=== PATIENT | female | born 1945 | race Caucasian/White ===

== ENCOUNTER → 2018-04-27 | Outpatient (CLI) | payer MEDICARE ==
[2018-04-27 16:11] LABS: BASOPHILS ABSOLUTE AUTO 0.04 K/mm3 (0.00-0.23); BASOPHILS PERCENT AUTO 1 % (0-2); EOSINOPHILS ABSOLUTE AUTO 0.13 K/mm3 (0.00-0.68); EOSINOPHILS PERCENT AUTO 2 % (0-6); Hematocrit 44.2 % (33.0-51.0); Hemoglobin 14.7 g/dL (11.5-16.0); IMMATURE GRAN ABSOLUTE AUTO 0.03 K/mm3 (0.00-0.10); IMMATURE GRAN PERCENT AUTO 1 % (0-1); LYMPHOCYTES ABSOLUTE AUTO 2.05 K/mm3 (0.84-5.20); LYMPHOCYTES PERCENT AUTO 35 % (21-46); MONOCYTES ABSOLUTE AUTO 0.39 K/mm3 (0.16-1.47); MONOCYTES PERCENT AUTO 7 % (4-13); Mean Corpuscular HGB 29.1 pg (26.0-34.0); Mean Corpuscular HGB Conc 33.3 g/dL (31.5-36.5); Mean Corpuscular Volume 87 fL (80-100); Mean Platelet Volume 10.7 fL (9.1-12.4); NEUTROPHILS ABSOLUTE AUTO 3.26 K/mm3 (1.96-9.15); NEUTROPHILS PERCENT AUTO 55 % (41-73); Platelet Count 244 K/mm3 (150-400); RDW Coefficient Variation 13.2 % (11.7-14.2); RDW Standard Deviation 41.7 fL (35.1-46.3); Red Blood Cell Count 5.06 M/mm3 (3.80-5.20)
[2018-04-27 21:17] LABS: Alanine Aminotransfer (ALT/SGP 20 U/L (12-78); Albumin/Globulin Ratio 1.2 (0.8-1.8); Alk Phos 122 U/L (50-136); Anion Gap 8 mmol/L (6-16); Aspartate Aminotrans (AST/SGOT 12 U/L (12-37); Bilirubin, Total 0.6 mg/dL (0.1-1.0); Blood Urea Nitrogen 11 mg/dL (8-24); Bun/Creatinine Ratio 21.6 (12.0-20.0); CO2, Blood 26 mmol/L (21-32); Calcium, Blood 9.1 mg/dL (8.5-10.1); Chloride, Blood 105 mmol/L (98-108); Creatinine, Blood 0.51 mg/dL (0.40-1.00); Globulin, Blood 3.4 g/dL (2.2-4.0); Glomerular Filtration Rate >60 (60-); Glucose, Blood 321 mg/dL (70-99); Potassium, Blood 3.7 mmol/L (3.5-5.5); Sodium, Blood 139 mmol/L (136-145); Total Protein, Blood 7.4 g/dL (6.4-8.2)
== END | disposition home or self-care (01) ==
LOC: LAB SHORT 16:04 → LAB EV 16:04
PROVIDERS: Family Medicine
DX: E11.65 Type 2 diabetes mellitus with hyperglycemia (principal); N39.0 Urinary tract infection, site not specified; R10.9 Unspecified abdominal pain
CPT/HCPCS: 80053; 83036; 85025; 87077; 87086; 87186

== ENCOUNTER 2020-03-24 14:35 | Inpatient (IN) | payer MEDICARE ==
[~2020-03-24] VITALS: Ht 165.1 cm; Wt 54.6 kg
[~2020-03-24 14:35] MED LIST: ACET325 PO; BASAGLAR K100 UNIT/1 SC; HUMALOG KW100 UNIT/1 SC; LEVFLO500 PO; METR500 PO; MIRALAX17 GM PO; ROXICODONE5 MG PO; [UNRECOGNIZED DRUG - OTHER] PO
[2020-03-24 20:41] LABS: BASOPHILS ABSOLUTE AUTO 0.04 K/mm3 (0.00-0.23); BASOPHILS PERCENT AUTO 0 % (0-2); EOSINOPHILS PERCENT AUTO 0 % (0-6); Hematocrit 38.2 % (33.0-51.0); Hemoglobin 12.5 g/dL (11.5-16.0); IMMATURE GRAN ABSOLUTE AUTO 0.21 K/mm3 (0.00-0.10); IMMATURE GRAN PERCENT AUTO 1 % (0-1); LYMPHOCYTES ABSOLUTE AUTO 0.72 K/mm3 (0.84-5.20); LYMPHOCYTES PERCENT AUTO 5 % (21-46); MONOCYTES ABSOLUTE AUTO 0.75 K/mm3 (0.16-1.47); MONOCYTES PERCENT AUTO 5 % (4-13); Mean Corpuscular HGB 28.3 pg (26.0-34.0); Mean Corpuscular HGB Conc 32.7 g/dL (31.5-36.5); Mean Corpuscular Volume 87 fL (80-100); Mean Platelet Volume 10.3 fL (9.1-12.4); NEUTROPHILS ABSOLUTE AUTO 13.46 K/mm3 (1.96-9.15); NEUTROPHILS PERCENT AUTO 89 % (41-73); Platelet Count 254 K/mm3 (150-400); RDW Coefficient Variation 13.1 % (11.7-14.2); RDW Standard Deviation 41.3 fL (35.1-46.3); Red Blood Cell Count 4.41 M/mm3 (3.80-5.20); White Blood Cell Count 15.18 K/mm3 (4.00-11.30)
[2020-03-24 21:14] LABS: Albumin, Blood 1.9 g/dL (3.4-5.0); Albumin/Globulin Ratio 0.4 (0.8-1.8); Bilirubin, Total 0.6 mg/dL (0.1-1.0); Bun/Creatinine Ratio 19.3 (12.0-20.0); Calcium, Blood 8.7 mg/dL (8.5-10.1); Creatinine, Blood 1.14 mg/dL (0.40-1.00); Globulin, Blood 4.9 g/dL (2.2-4.0); Potassium, Blood 3.5 mmol/L (3.5-5.5); Total Protein, Blood 6.8 g/dL (6.4-8.2)
[2020-03-24 21:23] LABS: Source, Urine Clean Catch
[2020-03-24 21:25] LABS: Appearance, Urine Cloudy (Clear); Bilirubin, Urine Neg (Neg); Blood, Urine 5+ (Neg); Color, Urine Brown (P-Yellow); Glucose Qualitative, Urine 4+ (Neg); Ketones, Urine 2+ (Neg); Leukocyte Esterase, Urine 2+ (Neg); Nitrite, Urine Pos (Neg); Protein, Urine 4+ (Neg); Urobilinogen, Urine NORM (Normal)
[2020-03-24 21:32] LABS: Bacteria Many /hpf; Red Blood Cells, Urine TNTC /hpf (0-2); Squamous Epithelial Cells Few /hpf (Few); White Blood Cells, Urine TNTC /hpf (0-5)
[2020-03-24] MEDS ORDERED: HUMALOG100 UNIT/1 SC (21:47)
--- NOTE | 2020-03-25 04:18 | NUR ---
ADMISSION NOTE RECEIVED HAND OFF FROM Dalia SELF RN USING SBAR. TRANSPORTED TO ROOM 227 VIA STRETCHER. TRANSFERED SELF TO BED WITH MINIMAL ASSISTANCE, TOLERATED WELL. LYING IN HIGH FOWLERS WITH EYES OPEN. AAO X3 (SELF, PLACE, SITUATION). ORIENTED TO ROOM, CALL SYSTEM, AND POC, VOICES UNDERSTANDING. LEFT ARM WITH EDEMA, REDNESS, AND PAIN NOTED. EDGES MARKED IN ER. RESPIRATIONS EVEN AND UNLABORED ON ROOM AIR. LUNG SOUNDS COARSE BILATERALLY. ABDOMEN ROUND AND DISTENDED WITH DISTANT BOWEL TONES NOTED. STATED THAT SHE WAS HUNGRY, GIVEN HALF OF A ROAST BEEF SANDWICH AND WATER. INCONTINENT OF BLADDER, WEARS DEPENDS. REPORTED DARK BROWN CLOUDY URINE PER ER. HAS NOT URINATED AT THIS TIME. RIGHT HAND 22G PIV IS PATENT, FLUSHING WITH EASE WHILE INFUSING NS WITH 20MEQ KCL AT 100ML/HR. DENIES PAIN, DISCOMFORT, OR FURTHER NEEDS AT THIS TIME. ADMISSION ASSESSMENT IN PROGRESS. SAFETY MEASURES IN PLACE. WILL CONTINUE TO MONITOR.
[2020-03-25 05:40] LABS: BASOPHILS ABSOLUTE AUTO 0.04 K/mm3 (0.00-0.23); BASOPHILS PERCENT AUTO 0 % (0-2); EOSINOPHILS ABSOLUTE AUTO 0.01 K/mm3 (0.00-0.68); EOSINOPHILS PERCENT AUTO 0 % (0-6); Hematocrit 39.6 % (33.0-51.0); Hemoglobin 12.5 g/dL (11.5-16.0); IMMATURE GRAN ABSOLUTE AUTO 0.11 K/mm3 (0.00-0.10); IMMATURE GRAN PERCENT AUTO 1 % (0-1); LYMPHOCYTES ABSOLUTE AUTO 0.75 K/mm3 (0.84-5.20); LYMPHOCYTES PERCENT AUTO 6 % (21-46); MONOCYTES ABSOLUTE AUTO 0.55 K/mm3 (0.16-1.47); MONOCYTES PERCENT AUTO 5 % (4-13); Mean Corpuscular HGB Conc 31.6 g/dL (31.5-36.5); Mean Corpuscular Volume 89 fL (80-100); Mean Platelet Volume 10.6 fL (9.1-12.4); NEUTROPHILS ABSOLUTE AUTO 10.31 K/mm3 (1.96-9.15); NEUTROPHILS PERCENT AUTO 88 % (41-73); Platelet Count 297 K/mm3 (150-400); RDW Coefficient Variation 13.1 % (11.7-14.2); RDW Standard Deviation 42.8 fL (35.1-46.3); Red Blood Cell Count 4.47 M/mm3 (3.80-5.20); White Blood Cell Count 11.77 K/mm3 (4.00-11.30)
[2020-03-25 05:52] LABS: Anion Gap 10 mmol/L (6-16); Blood Urea Nitrogen 23 mg/dL (8-24); Bun/Creatinine Ratio 21.1 (12.0-20.0); CO2, Blood 24 mmol/L (21-32); Chloride, Blood 101 mmol/L (98-108); Creatinine, Blood 1.09 mg/dL (0.40-1.00); Glomerular Filtration Rate 52 (60-); Glucose, Blood 382 mg/dL (70-99); Potassium, Blood 3.4 mmol/L (3.5-5.5); Sodium, Blood 135 mmol/L (136-145); Troponin I <0.015 ng/mL (0.000-0.040)
--- NOTE | 2020-03-25 06:31 | NUR ---
SHIFT SUMMARY LYING IN SEMI FOWLERS WITH EYES OPEN. HAS RESTED OFF AND ON SINCE ADMISSION. ONLY ATE A FEW BITES OF THE SANDWICH PROVIDED, STATED THAT IT DIDN'T TASTE RIGHT. INFORMED THAT BREAKFAST WOULD BE SERVED IN A COUPLE OF HOURS, VOICES UNDERSTANDING. PIV IS PATENT, FLUSHING WITH EASE WHILE INFUSING NS WITH 20MEQ KCL AT 100ML/HR. LEFT ARM EDEMA AND WARMTH ARE UNCHANGED. NO SIGNIFICANT CHANGES THIS SHIFT. DENIES PAIN, DISCOMFORT, OR FURTHER NEEDS AT THIS TIME. SAFETY MEASURES IN PLACE. WILL CONTINUE TO MONITOR UNTIL GIVING HAND OFF TO ONCOMING SHIFT USING SBAR.
--- NOTE | 2020-03-25 12:30 | NUR ---
IMAGING STUDIES BEING PERFORMED BEDSIDE
--- NOTE | 2020-03-25 18:44 | NUR ---
SHIFT SUMMARY ASSUMED CARE AT APPROX 1300, PT HAS BEEN PLEASANTLY CONFUSED AT TIMES BUT ANSWERS ALL ?'S APPROP AT OTHER TIMES. NEG FOR DVT IN L ARM TODAY. + BLOOD CULTURES x 2. URINE CONTINUES TO BE DARK ALMOST BROWN IN COLOR. IVF INFUSED T/O SHIFT.
--- NOTE | 2020-03-25 21:46 | NUR ---
SURGICAL NURSE CHECKED PATIENT'S BLOOD SUGAR AND IT WAS 406. I CALLED FULL STACK ENGINEER HERVE TO UPDATE HER ABOUT THE SITUATION. SHE INCREASED HER INSULIN SCALE TO MEDIUM. I WILL BE GIVING HER INSULIN AND MONITORING HER BLOOD GLUCOSE DURING THE NIGHT. WILL CALL THE HOSPITALIST IF BLOOD GLUCOSE IS > OR EQUAL TO 400 AGAIN. PATIENT HAS CALL LIGHT WITHIN REACH.
--- NOTE | 2020-03-26 03:17 | NUR ---
SHIFT SUMMARY: SEPSIS WITH UTI WELL LEFT ARM CELLULITIS PATIENT IS PLEASANTLY CONFUSED AT TIMES BUT IS EASILY RE-ORIENTATED. SHE ALSO FOLLOWS DIRECTIONS WELL. VS ARE WNL AND IS ON RA. PAIN IS CONTROLLED WITH TYLENOL. EARLY IN THE SHIFT SHE HAD A CT DONE ON HER CHEST WHICH RESULTS ARE IN FRONT OF HER CHART. PATIENT IS A SBA WITH GAIT BELT AND WALKER WHEN GETTING UP TO USE THE BATHROOM. HER LEFT ARM IS ELEVATED BY A PILLOW. SHE HAS IV FLUIDS RUNNING IN HER 20G IV ON HER RIGHT HAND. URINE IS STILL A DARK ALMOST BROWN COLOR. CALL LIGHT WITHIN REACH. PATIENT IS CURRENTLY LAYING IN BED WITH HER EYES CLOSED AND LIGHTS OFF. THE PLAN IS TO CONTINUE PHYSICAL THERAPY WELL IV FLUIDS/ABX.
[2020-03-26 09:05] LABS: BASOPHILS ABSOLUTE AUTO 0.06 K/mm3 (0.00-0.23); BASOPHILS PERCENT AUTO 0 % (0-2); EOSINOPHILS PERCENT AUTO 1 % (0-6); Hematocrit 38.7 % (33.0-51.0); Hemoglobin 12.3 g/dL (11.5-16.0); IMMATURE GRAN ABSOLUTE AUTO 0.16 K/mm3 (0.00-0.10); IMMATURE GRAN PERCENT AUTO 1 % (0-1); LYMPHOCYTES ABSOLUTE AUTO 0.99 K/mm3 (0.84-5.20); LYMPHOCYTES PERCENT AUTO 7 % (21-46); MONOCYTES ABSOLUTE AUTO 0.82 K/mm3 (0.16-1.47); MONOCYTES PERCENT AUTO 6 % (4-13); Mean Corpuscular HGB 27.5 pg (26.0-34.0); Mean Corpuscular HGB Conc 31.8 g/dL (31.5-36.5); Mean Corpuscular Volume 87 fL (80-100); NEUTROPHILS ABSOLUTE AUTO 12.38 K/mm3 (1.96-9.15); NEUTROPHILS PERCENT AUTO 85 % (41-73); RDW Coefficient Variation 13.2 % (11.7-14.2); RDW Standard Deviation 42.3 fL (35.1-46.3); Red Blood Cell Count 4.47 M/mm3 (3.80-5.20); White Blood Cell Count 14.51 K/mm3 (4.00-11.30)
[2020-03-26 09:08] LABS: Mean Platelet Volume 10.1 fL (9.1-12.4); Platelet Count 262 K/mm3 (150-400)
[2020-03-26 09:22] LABS: Bun/Creatinine Ratio 26.9 (12.0-20.0); Calcium, Blood 7.5 mg/dL (8.5-10.1); Creatinine, Blood 1.19 mg/dL (0.40-1.00)
[2020-03-26 11:48] LABS: Influenza A, PCR Negative (NEGATIVE); Influenza B, PCR Negative (NEGATIVE); Resp Syncytial Virus, PCR Negative (NEGATIVE); SARS-Cov-2 (COVID-19) PCR, MMC Negative (NEGATIVE)
[2020-03-26 15:26] LABS: U Opiates Screen DETECTED
[2020-03-26 15:27] LABS: U Amphetamine Screen Not Detected; U Barbituate Screen Not Detected; U Benzodiazapine Screen Not Detected; U Buprenorphine Screen Not Detected; U Cannabinoids Screen Not Detected; U Cocaine Screen Not Detected; U Methadone Screen Not Detected; U Methamphetamine Screen Not Detected; U Oxycodone Screen Not Detected; U Phencyclidine Screen Not Detected; U Propoxyphene Screen Not Detected
--- NOTE | 2020-03-26 16:27 | NUR ---
Patient returned to room 227 from MRI. RN noted what appears to be petechia on BLE and RUE. Pulses palpable. Hospitalist notified. No further orders at this time.
--- NOTE | 2020-03-26 18:28 | NUR ---
SHIFT SUMMARY PETECHIA NOTED TO EVELIO AND ENRIQUE. HOSPITALIST AWARE. LEFT ARM ELEVATED IN BED. PATIENT HAD US AND MRI OF L ARM TODAY. DR. FUNG CONSULTED. AWAITING FURTHER ORDERS AND PLAN. PLAN HAS BEEN CONFUSED AT TIMES BUT PLEASANT AND COOPERATIVE WITH ALL CARE. CALL LIGHT WITHIN PATIENT REACH.
--- NOTE | 2020-03-27 04:06 | NUR ---
FINANCIAL SOLUTIONS ADVISOR SUMMARY A/OX2, PT HAVING INTERMITTENT VISUAL HALLUCINATIONS. L. ARM ELEVATED WITH PILLOWS. POWERGLIDE PLACED THIS SHIFT, NS/KCL 20 RUNNING AT 100 MLS/HR. UP TO BSC WITH [address] RUNNING SR IN THE 90S. VSS, NO ACUTE CHANGES AT THIS TIME. BED IN LOWEST POSITION WITH CALL LIGHT IN REACH. WILL CONTINUE TO MONITOR AND REPORT TO ONCOMING RN.
[2020-03-27 05:41] LABS: BASOPHILS ABSOLUTE AUTO 0.04 K/mm3 (0.00-0.23); BASOPHILS PERCENT AUTO 0 % (0-2); EOSINOPHILS PERCENT AUTO 1 % (0-6); Hematocrit 35.3 % (33.0-51.0); Hemoglobin 11.4 g/dL (11.5-16.0); IMMATURE GRAN ABSOLUTE AUTO 0.23 K/mm3 (0.00-0.10); IMMATURE GRAN PERCENT AUTO 2 % (0-1); LYMPHOCYTES ABSOLUTE AUTO 1.09 K/mm3 (0.84-5.20); LYMPHOCYTES PERCENT AUTO 10 % (21-46); MONOCYTES ABSOLUTE AUTO 0.72 K/mm3 (0.16-1.47); MONOCYTES PERCENT AUTO 6 % (4-13); Mean Corpuscular HGB 28.4 pg (26.0-34.0); Mean Corpuscular HGB Conc 32.3 g/dL (31.5-36.5); Mean Corpuscular Volume 88 fL (80-100); Mean Platelet Volume 10.1 fL (9.1-12.4); NEUTROPHILS ABSOLUTE AUTO 9.09 K/mm3 (1.96-9.15); NEUTROPHILS PERCENT AUTO 81 % (41-73); Platelet Count 320 K/mm3 (150-400); RDW Coefficient Variation 13.6 % (11.7-14.2); RDW Standard Deviation 43.8 fL (35.1-46.3); Red Blood Cell Count 4.02 M/mm3 (3.80-5.20); White Blood Cell Count 11.27 K/mm3 (4.00-11.30)
[2020-03-27 06:06] LABS: Bun/Creatinine Ratio 25.2 (12.0-20.0); Calcium, Blood 7.4 mg/dL (8.5-10.1); Creatinine, Blood 1.31 mg/dL (0.40-1.00); Potassium, Blood 4.2 mmol/L (3.5-5.5)
--- NOTE | 2020-03-27 15:36 | NUR ---
History, Chart, Medications and Allergies reviewed before start of procedure.Lungs clear T/O to Auscultation. Patient confirms NPO status and agrees with scheduled surgery. REPORT FROM NARESH MORELAND RN. PT TRANSFER TO [facility] WITH 2 STAFF ASSIST.
--- NOTE | 2020-03-27 15:37 | NUR ---
ABLE TO GET PT RINGS X 3 ALL YELLOW METAL OFF OF FINGER. PLACED THEM IN ZIPLOC WITH NAME TAG AND ATTACHED TO CHART IN THE MIDDLE.
--- NOTE | 2020-03-27 18:21 | NUR ---
SHIFT SUMMARY PT A&OX3, RESTING COMFORTABLY, WAKES EASILY. VSS/RA. DENIES PAIN. DENIES N&V. S/P I&D BRENDA, АЛЕКСАНДР WRAP CDI, ELEVATED ON PILLOW. WILL REPORT TO ONCOMING NOC RN.
--- NOTE | 2020-03-28 03:57 | NUR ---
GLOBAL RECRUITER SUMMARY A/O 2-3, UP TO BSC WITH 1 ASSIST. REDNESS AND SWELLING TO BRENDA NOTED, АЛЕКСАНДР WRAP IN PLACE S/P I&D YESTERDAY. C/O PAIN IN THE AREA, MEDICATED PER EMAR. NS WITH KCL RUNNING AT 100 MLS/HR TO ZHANG POWERGLIDE. NO ACUTE CHANGES AT THIS TIME. BED IN LOWEST POSITION WITH CALL LIGHT IN REACH. WILL CONTINUE TO MONITOR AND REPORT TO ONCOMING RN.
--- NOTE | 2020-03-28 07:40 | NUR ---
pt has l arm maikel on pillows pt has pos radial pulse still has severe swelling to the hand also reports numbness pt wiggles hands
[2020-03-28 09:32] LABS: BASOPHILS ABSOLUTE AUTO 0.08 K/mm3 (0.00-0.23); BASOPHILS PERCENT AUTO 1 % (0-2); EOSINOPHILS ABSOLUTE AUTO 0.08 K/mm3 (0.00-0.68); EOSINOPHILS PERCENT AUTO 1 % (0-6); Hematocrit 35.2 % (33.0-51.0); Hemoglobin 10.7 g/dL (11.5-16.0); IMMATURE GRAN ABSOLUTE AUTO 0.28 K/mm3 (0.00-0.10); IMMATURE GRAN PERCENT AUTO 2 % (0-1); LYMPHOCYTES ABSOLUTE AUTO 1.18 K/mm3 (0.84-5.20); LYMPHOCYTES PERCENT AUTO 9 % (21-46); MONOCYTES ABSOLUTE AUTO 0.77 K/mm3 (0.16-1.47); MONOCYTES PERCENT AUTO 6 % (4-13); Mean Corpuscular HGB 27.8 pg (26.0-34.0); Mean Corpuscular HGB Conc 30.4 g/dL (31.5-36.5); Mean Corpuscular Volume 91 fL (80-100); Mean Platelet Volume 9.9 fL (9.1-12.4); NEUTROPHILS ABSOLUTE AUTO 10.47 K/mm3 (1.96-9.15); NEUTROPHILS PERCENT AUTO 81 % (41-73); Platelet Count 317 K/mm3 (150-400); RDW Coefficient Variation 13.8 % (11.7-14.2); RDW Standard Deviation 46.7 fL (35.1-46.3); Red Blood Cell Count 3.85 M/mm3 (3.80-5.20); White Blood Cell Count 12.86 K/mm3 (4.00-11.30)
[2020-03-28 09:42] LABS: Anion Gap 6 mmol/L (6-16); Blood Urea Nitrogen 26 mg/dL (8-24); Bun/Creatinine Ratio 25.2 (12.0-20.0); CO2, Blood 19 mmol/L (21-32); Calcium, Blood 7.3 mg/dL (8.5-10.1); Chloride, Blood 114 mmol/L (98-108); Creatinine, Blood 1.03 mg/dL (0.40-1.00); Glomerular Filtration Rate 56 (60-); Glucose, Blood 249 mg/dL (70-99); Sodium, Blood 139 mmol/L (136-145); Vancomycin, Trough 13.2 ug/mL (5.0-10.0)
--- NOTE | 2020-03-28 09:45 | NUR ---
pt working with physical therapy oob into bathroom
--- NOTE | 2020-03-28 14:13 | NUR ---
reposistioned in chair earlier loosened emily wrap again
--- NOTE | 2020-03-28 14:33 | NUR ---
pt req for pain meds
--- NOTE | 2020-03-28 16:17 | NUR ---
dr reese by to see pt changed pt's dressing sat and swollen left loose
--- NOTE | 2020-03-28 17:46 | NUR ---
pt's s/o called update given
--- NOTE | 2020-03-29 05:53 | NUR ---
POD 2 S/P I&D OF LEFT ARM. PT VSS T/O NIGHT; HR SINUS TACH 90-100'S PER TELE MONITOR. LEFT HAND AND FINGERS REMAIN SWOLLEN, ARM ELEVATED ON 3 PILLOWS IN BED. FINGERS PALE PINK, HAND WARM THIS AM, CAP REFILL WNL. DRESSING CDI. PAIN MGD W/PO PAIN MEDS AND ICE W/REP RELIEF. URINE DARK YELLOW W/BROWN TINT. PT UP OOB W/FWW+SBA. PT NPO FOR PLANNED REPEAT I&D TODAY, IVF CONT PER ORDERS.
[2020-03-29 05:59] LABS: BASOPHILS ABSOLUTE AUTO 0.08 K/mm3 (0.00-0.23); BASOPHILS PERCENT AUTO 1 % (0-2); EOSINOPHILS ABSOLUTE AUTO 0.29 K/mm3 (0.00-0.68); EOSINOPHILS PERCENT AUTO 2 % (0-6); Hematocrit 33.4 % (33.0-51.0); Hemoglobin 10.3 g/dL (11.5-16.0); IMMATURE GRAN ABSOLUTE AUTO 0.52 K/mm3 (0.00-0.10); IMMATURE GRAN PERCENT AUTO 4 % (0-1); LYMPHOCYTES ABSOLUTE AUTO 1.72 K/mm3 (0.84-5.20); LYMPHOCYTES PERCENT AUTO 13 % (21-46); MONOCYTES ABSOLUTE AUTO 0.94 K/mm3 (0.16-1.47); MONOCYTES PERCENT AUTO 7 % (4-13); Mean Corpuscular HGB 28.5 pg (26.0-34.0); Mean Corpuscular HGB Conc 30.8 g/dL (31.5-36.5); Mean Corpuscular Volume 93 fL (80-100); Mean Platelet Volume 9.2 fL (9.1-12.4); NEUTROPHILS ABSOLUTE AUTO 9.52 K/mm3 (1.96-9.15); NEUTROPHILS PERCENT AUTO 73 % (41-73); Platelet Count 374 K/mm3 (150-400); RDW Coefficient Variation 13.8 % (11.7-14.2); Red Blood Cell Count 3.61 M/mm3 (3.80-5.20); White Blood Cell Count 13.07 K/mm3 (4.00-11.30)
[2020-03-29 06:19] LABS: Bun/Creatinine Ratio 20.2 (12.0-20.0); Calcium, Blood 7.9 mg/dL (8.5-10.1); Creatinine, Blood 1.24 mg/dL (0.40-1.00); Potassium, Blood 4.8 mmol/L (3.5-5.5)
--- NOTE | 2020-03-29 09:18 | NUR ---
THERAPY WORKING W/PT
--- NOTE | 2020-03-29 11:36 | NUR ---
PT TO OR
--- NOTE | 2020-03-29 12:38 | NUR ---
03/29/20 1238 rAianna Shine PT ON MULTIPLE DIFFERENT ANTIBIOTICS AND RECIEVED PRIOR TO ARRIVAL TO OR.
--- NOTE | 2020-03-29 14:28 | NUR ---
PT ARRIVED BACK TO UNIT FROM PACU VSS. ASSISTED PT TO BSC, VOIDED 450 ML URINE. NOW BACK TO BED. RESTING W/EYES CLOSED. CALL LIGHT IN REACH.
--- NOTE | 2020-03-29 17:38 | NUR ---
SUMMARY PT S/P I&D AND WOUND VAC PLACEMENT TO LUE THIS SHIFT. VSS. PT SLEPT OFF AND ON POST OP. MEDICATED THIS AFTERNOON FOR 9/10 PAIN TO LUE. SITTING UP IN CHAIR, EATING DINNER. WOUND VAC DRAINING SS FLUID. PT CONTINUES TO HAVE PETECHIAE TO RUE AND BLE. CALL LIGHT IN REACH.
[2020-03-30 04:02] LABS: BASOPHILS ABSOLUTE AUTO 0.04 K/mm3 (0.00-0.23); BASOPHILS PERCENT AUTO 0 % (0-2); EOSINOPHILS PERCENT AUTO 0 % (0-6); Hematocrit 30.1 % (33.0-51.0); Hemoglobin 9.3 g/dL (11.5-16.0); IMMATURE GRAN ABSOLUTE AUTO 0.56 K/mm3 (0.00-0.10); IMMATURE GRAN PERCENT AUTO 4 % (0-1); LYMPHOCYTES ABSOLUTE AUTO 1.02 K/mm3 (0.84-5.20); LYMPHOCYTES PERCENT AUTO 8 % (21-46); MONOCYTES ABSOLUTE AUTO 0.54 K/mm3 (0.16-1.47); MONOCYTES PERCENT AUTO 4 % (4-13); Mean Corpuscular HGB 27.7 pg (26.0-34.0); Mean Corpuscular HGB Conc 30.9 g/dL (31.5-36.5); Mean Corpuscular Volume 90 fL (80-100); Mean Platelet Volume 9.5 fL (9.1-12.4); NEUTROPHILS ABSOLUTE AUTO 10.79 K/mm3 (1.96-9.15); NEUTROPHILS PERCENT AUTO 83 % (41-73); Platelet Count 434 K/mm3 (150-400); RDW Coefficient Variation 13.5 % (11.7-14.2); RDW Standard Deviation 44.7 fL (35.1-46.3); Red Blood Cell Count 3.36 M/mm3 (3.80-5.20); White Blood Cell Count 12.95 K/mm3 (4.00-11.30)
[2020-03-30 04:25] LABS: Bun/Creatinine Ratio 26.9 (12.0-20.0); Calcium, Blood 7.9 mg/dL (8.5-10.1); Creatinine, Blood 1.08 mg/dL (0.40-1.00); Potassium, Blood 5.4 mmol/L (3.5-5.5)
--- NOTE | 2020-03-30 06:43 | NUR ---
POD 1 S/P REPEAT I&D W/WOUND VAC PLACEMENT. PT VSS T/O NIGHT. WOUND VAC DRNG SMALL AMT SS DRNG; SEAL AND SX INTACT. SWELLING TO LUE IMPRPVED, CAP REFILL AND PULSE WNL. ARM ELEVATED ON PILLOWS. NO CHANGES NOTED IN [place]. URINE APPEARS PRODUCT SAFETY TEST ENGINEER THIS AM. PT UP OOB W/FWW+SBA, PRITESH WELL. IVF AND ABX CONT PER ORDERS.
--- NOTE | 2020-03-30 17:27 | NUR ---
SUMMARY: PT IS POD1 L ARM I&D. PT IS ALERT, PLEASENTLY CONFUSED AT TIMES, BED/TAB ALARM ON FOR SAFETY. SURGICAL SITE WNL, L ARM SWELLING, ENCOURAGED ELEVATION. PT MOVES WELL IN ROOM, PT/OT CONSULTED. WOUND VAC WNL DRAINING SS OUTPUT. ABX INFUSED. PT MEDICATED FOR PAIN PRN. NO ACUTE SAFETY CONCERNS. TELE STABLE. WILL REPORT TO KATY OVALLE.
--- NOTE | 2020-03-31 07:45 | NUR ---
PT HAD NO ACUTE CHANGES T/O NIGHT. VSS; HR TRENDING 90'S PER TELE MONITOR. WOUND VAC INTACT W/SMALL AMT SS DRNG. SWELLING TO LUE IMPROVED, PT DENIES N/T, CAP REFILL WNL; ARM ELEVATED ON PILLOWS. PETECHIAE TO RUE APPEARS IMPROVED THIS AM, NO SIG CHANGES TO BLE. PT NPO POST MIDNIGHT FOR PLANNED REPEAT I&D TODAY. PT UP OOB W/FWW+SBA, ASSISTED W/REPOSITIONING IN BED PRN. PT USING CALL LIGHT FOR ASSISTANCE.
[2020-03-31 09:08] LABS: BASOPHILS ABSOLUTE AUTO 0.11 K/mm3 (0.00-0.23); BASOPHILS PERCENT AUTO 1 % (0-2); EOSINOPHILS ABSOLUTE AUTO 0.24 K/mm3 (0.00-0.68); EOSINOPHILS PERCENT AUTO 2 % (0-6); Hematocrit 31.3 % (33.0-51.0); Hemoglobin 9.8 g/dL (11.5-16.0); IMMATURE GRAN ABSOLUTE AUTO 0.47 K/mm3 (0.00-0.10); IMMATURE GRAN PERCENT AUTO 4 % (0-1); LYMPHOCYTES ABSOLUTE AUTO 1.67 K/mm3 (0.84-5.20); LYMPHOCYTES PERCENT AUTO 14 % (21-46); MONOCYTES ABSOLUTE AUTO 0.74 K/mm3 (0.16-1.47); MONOCYTES PERCENT AUTO 6 % (4-13); Mean Corpuscular HGB 28.3 pg (26.0-34.0); Mean Corpuscular HGB Conc 31.3 g/dL (31.5-36.5); Mean Corpuscular Volume 91 fL (80-100); NEUTROPHILS ABSOLUTE AUTO 8.92 K/mm3 (1.96-9.15); NEUTROPHILS PERCENT AUTO 73 % (41-73); Platelet Count 445 K/mm3 (150-400); RDW Coefficient Variation 13.8 % (11.7-14.2); RDW Standard Deviation 45.4 fL (35.1-46.3); Red Blood Cell Count 3.46 M/mm3 (3.80-5.20); White Blood Cell Count 12.15 K/mm3 (4.00-11.30)
[2020-03-31 09:30] LABS: Anion Gap 8 mmol/L (6-16); Blood Urea Nitrogen 25 mg/dL (8-24); Bun/Creatinine Ratio 22.1 (12.0-20.0); CO2, Blood 21 mmol/L (21-32); Calcium, Blood 8.2 mg/dL (8.5-10.1); Chloride, Blood 113 mmol/L (98-108); Creatinine, Blood 1.13 mg/dL (0.40-1.00); Glomerular Filtration Rate 50 (60-); Glucose, Blood 140 mg/dL (70-99); Potassium, Blood 4.7 mmol/L (3.5-5.5); Sodium, Blood 142 mmol/L (136-145); Vancomycin, Trough 18.8 ug/mL (5.0-10.0)
--- NOTE | 2020-03-31 10:00 | NUR ---
THERAPY: OT IN ROOM TO WORK WITH PT. PT HAS BEEN UP TO CHAIR THIS AM WITH MOD ASSIST BY THIS RN.
--- NOTE | 2020-03-31 12:00 | NUR ---
SURGERY: PT TO DAY SURGERY AT THIS TIME. SURGICAL PKT COMPLETED. BLOOD SUGAR <200. PT WOUND VAC IN PLACE. POWERGLIDE INFUSING WELL. WILL CONT TO MONITOR WHEN RETURNS TO ROOM.
--- NOTE | 2020-03-31 13:43 | NUR ---
03/31/20 1343 Arianna Shine PT ON SCHEDULED ANTIBIOTICS AND RECIEVED PRIOR TO ARRIVAL TO OR.
--- NOTE | 2020-03-31 15:18 | NUR ---
POST OP: PT RETURNED TO ROOM POST OP. WOUND VAC INTACT AND DRAINING. PT UP TO COMMODE WITH ASSIST. VSS. WEANED TO RA. CHAYA CONSULT CALLED AND HE WILL BE IN TO SEE PATIENT SHORTLY.
--- NOTE | 2020-03-31 18:53 | NUR ---
PT HAS BEEN STABLE THIS SHIFT. HYPERTENSIVE. AFEBRILE. PT POST OP FROM I+D WITH WOUND VAC CHANGE TODAY. LEFT ARM RED AND SWOLLEN. WOUND VAC WITH SMALL AMT SANGUINOUS DRAINAGE. MEDICATED FOR PAIN X1, EFFECTIVE. PT HAS RASH ON LEGS AND ARMS. DR LARKIN CONSULTED THIS AFTERNOON AND ABX CHANGED. LABS ORDERED FOR AM. POWERGLIDE PATENT BUT UNABLE TO DRAW BLOOD. PT PRITESH DIET WELL. VOIDING WELL, URINE CLEARING. BLOOD SUGARS WITH COVERAGE PER SLIDING SCALE AT DINNER ONLY. PT WORKED WELL WITH THERAPY. FORGETFUL AT TIMES. BED AND CHAIR ALARMS IN USE.
--- NOTE | 2020-04-01 04:18 | NUR ---
SHIFT SUMMARY: PT POD#1 FOR I&D TO LEFT ARM. WOUND VAC INTACT AND SUCTIONING SEROSANGUINOUS FLUID. LEFT ARM ELEVATED ON MUTIPLE PILLOWS. ARM REMAINS SWOLLEN. PETECHIAE TO BLE. PT OUT OF BED TO BSC WITH 1-2 MODERATE ASSIST. VODIING WELL. DENIES URINARY SYMPTOMS. SR WITH PVC'S PER TELE. CBG ELEVATED LAST NIGHT AT 272. HOSPITALIST NOTIFIED. NO NEW ORDERS. PT RESTING MOST OF SHIFT.
[2020-04-01 06:38] LABS: BASOPHILS ABSOLUTE AUTO 0.06 K/mm3 (0.00-0.23); BASOPHILS PERCENT AUTO 1 % (0-2); EOSINOPHILS ABSOLUTE AUTO 0.12 K/mm3 (0.00-0.68); EOSINOPHILS PERCENT AUTO 1 % (0-6); Hemoglobin 8.9 g/dL (11.5-16.0); IMMATURE GRAN ABSOLUTE AUTO 0.36 K/mm3 (0.00-0.10); IMMATURE GRAN PERCENT AUTO 3 % (0-1); LYMPHOCYTES ABSOLUTE AUTO 1.61 K/mm3 (0.84-5.20); LYMPHOCYTES PERCENT AUTO 14 % (21-46); MONOCYTES ABSOLUTE AUTO 0.73 K/mm3 (0.16-1.47); MONOCYTES PERCENT AUTO 6 % (4-13); Mean Corpuscular HGB 28.3 pg (26.0-34.0); Mean Corpuscular HGB Conc 31.8 g/dL (31.5-36.5); Mean Corpuscular Volume 89 fL (80-100); NEUTROPHILS ABSOLUTE AUTO 9.04 K/mm3 (1.96-9.15); NEUTROPHILS PERCENT AUTO 76 % (41-73); Platelet Count 471 K/mm3 (150-400); RDW Standard Deviation 45.3 fL (35.1-46.3); Red Blood Cell Count 3.15 M/mm3 (3.80-5.20); White Blood Cell Count 11.92 K/mm3 (4.00-11.30)
[2020-04-01 06:53] LABS: Bun/Creatinine Ratio 18.9 (12.0-20.0); Calcium, Blood 8.3 mg/dL (8.5-10.1); Creatinine, Blood 1.11 mg/dL (0.40-1.00); Potassium, Blood 4.3 mmol/L (3.5-5.5)
--- NOTE | 2020-04-01 07:45 | NUR ---
pt sleeping wakes to verbal stimuli stated that she has pain 81/0 to l arm elev on pillows pt stated that she is worried she has to go to a snf wants to go home improved swelling to l hand and overall swelling to l arm wound vac draining serosang
--- NOTE | 2020-04-01 10:00 | NUR ---
pt sitting up in chair resting wakes to verbal stimuli arm elev stated pain is better
--- NOTE | 2020-04-01 12:05 | NUR ---
pt eating lunch
--- NOTE | 2020-04-01 13:11 | NUR ---
pt kane sitting up in chair
--- NOTE | 2020-04-01 14:50 | NUR ---
pt req pain meds
--- NOTE | 2020-04-01 16:26 | NUR ---
pt arm elev more ice applied pt stated it helped with the pain
--- NOTE | 2020-04-01 18:11 | NUR ---
assisted pt back into bed pt stated she was not hungry for dinner
--- NOTE | 2020-04-02 03:36 | NUR ---
SHIFT SUMMARY PT HAS BEEN A/O, FORGETFUL AT TIMES; BED ALARM ON. WOUND VAC TO BRENDA WITH FOAM COMPRESSED. HAS BEEN NPO SINCE MIDNIGHT FOR I&D TODAY. ARM ELEVATED ON PILLOWS OVERNIGHT. SUPPOSITORY GIVEN THIS SHIFT; PT DID HAVE BM AFTERWARD. PT RESTING IN BED AT THIS TIME WITH CALL LIGHT IN REACH.
[2020-04-02 05:47] LABS: BASOPHILS ABSOLUTE AUTO 0.06 K/mm3 (0.00-0.23); BASOPHILS PERCENT AUTO 1 % (0-2); EOSINOPHILS ABSOLUTE AUTO 0.26 K/mm3 (0.00-0.68); EOSINOPHILS PERCENT AUTO 2 % (0-6); Hematocrit 23.1 % (33.0-51.0); Hemoglobin 7.2 g/dL (11.5-16.0); IMMATURE GRAN ABSOLUTE AUTO 0.37 K/mm3 (0.00-0.10); IMMATURE GRAN PERCENT AUTO 3 % (0-1); LYMPHOCYTES PERCENT AUTO 18 % (21-46); MONOCYTES ABSOLUTE AUTO 0.76 K/mm3 (0.16-1.47); MONOCYTES PERCENT AUTO 6 % (4-13); Mean Corpuscular HGB 28.1 pg (26.0-34.0); Mean Corpuscular HGB Conc 31.2 g/dL (31.5-36.5); Mean Corpuscular Volume 90 fL (80-100); Mean Platelet Volume 8.8 fL (9.1-12.4); NEUTROPHILS ABSOLUTE AUTO 9.04 K/mm3 (1.96-9.15); NEUTROPHILS PERCENT AUTO 71 % (41-73); Platelet Count 501 K/mm3 (150-400); RDW Coefficient Variation 13.8 % (11.7-14.2); Red Blood Cell Count 2.56 M/mm3 (3.80-5.20); White Blood Cell Count 12.79 K/mm3 (4.00-11.30)
[2020-04-02 06:07] LABS: Bun/Creatinine Ratio 15.7 (12.0-20.0); Creatinine, Blood 1.02 mg/dL (0.40-1.00); Potassium, Blood 4.1 mmol/L (3.5-5.5)
--- NOTE | 2020-04-02 07:25 | NUR ---
pt reports h/a 11/30 dec swelling to l arm assisted pt oob to void on bsc and then into chair pt reported having bm last might will repqat mom again today
--- NOTE | 2020-04-02 09:39 | NUR ---
dr moraes by to see pt
--- NOTE | 2020-04-02 11:51 | NUR ---
PT TRANSPORTED TO DAY SURG VIA [facility]
--- NOTE | 2020-04-02 12:14 | NUR ---
PT TRANSFERED TO [facility] VIA [facility] FROM FLOOR. History, Chart, Medications and Allergies reviewed before start of procedure. Lungs clear T/O to Auscultation. Patient confirms NPO status and agrees with scheduled surgery. Pre-Op teaching done. Pt verbalizes understanding.
--- NOTE | 2020-04-02 13:28 | NUR ---
04/02/20 1328 CAITLINREX HUMPHREY PT RECEIVED SCHEDULED ANTIOBIC, DR AWARE AND DOES NOT WANT ADDITIONAL ANTIBIOTICS GIVEN PRIOR TO PROCEDURE.
--- NOTE | 2020-04-02 13:30 | NUR ---
PT HAVING BLADDER SPASMS FLUSHED GOLDSTEIN CATH WITH 20 ML SALINE PATENT PT STANDS THEN SITS STATED THAT IS THE ONLY THING THAT HELPS
--- NOTE | 2020-04-02 14:45 | NUR ---
PT ARRIVED BACK TO ROOM 227 FROM PACU S/P i&d PT HAS АЛЕКСАНДР WRAP C/D/I AND DEANDRE DRAIN WITH SERO SANG RED DRAINAGE PT REPORTS BEING THIRSTY WATER AND SUGAR FREE PUDDING GIVEN
--- NOTE | 2020-04-02 15:25 | NUR ---
EMPTIED DEANDRE 30 ML PT RESTING
[2020-04-03 04:55] LABS: BASOPHILS ABSOLUTE AUTO 0.03 K/mm3 (0.00-0.23); BASOPHILS PERCENT AUTO 0 % (0-2); EOSINOPHILS ABSOLUTE AUTO 0.03 K/mm3 (0.00-0.68); EOSINOPHILS PERCENT AUTO 0 % (0-6); IMMATURE GRAN ABSOLUTE AUTO 0.23 K/mm3 (0.00-0.10); IMMATURE GRAN PERCENT AUTO 2 % (0-1); LYMPHOCYTES ABSOLUTE AUTO 1.28 K/mm3 (0.84-5.20); LYMPHOCYTES PERCENT AUTO 12 % (21-46); MONOCYTES ABSOLUTE AUTO 0.52 K/mm3 (0.16-1.47); MONOCYTES PERCENT AUTO 5 % (4-13); Mean Corpuscular HGB 28.4 pg (26.0-34.0); Mean Corpuscular Volume 89 fL (80-100); NEUTROPHILS ABSOLUTE AUTO 8.76 K/mm3 (1.96-9.15); NEUTROPHILS PERCENT AUTO 81 % (41-73); Platelet Count 465 K/mm3 (150-400); RDW Coefficient Variation 13.6 % (11.7-14.2); Red Blood Cell Count 2.82 M/mm3 (3.80-5.20); White Blood Cell Count 10.85 K/mm3 (4.00-11.30)
[2020-04-03 05:22] LABS: Bun/Creatinine Ratio 20.4 (12.0-20.0); Calcium, Blood 8.2 mg/dL (8.5-10.1); Creatinine, Blood 1.13 mg/dL (0.40-1.00); Potassium, Blood 4.2 mmol/L (3.5-5.5)
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
--- NOTE | 2020-04-03 19:02 | NUR ---
SHIFT SUMMARY PT IS POD#1 FROM CLOSURE OF R ARM WOUND. DEANDRE DRAIN REMAINS IN PLACE, MINIMAL OUTPUT. PT WORKED WITH THERAPY TODAY, SHE IS A 1 PERSON ASSIST. POWER GLIDE DRESSING CHANGED. PT TRANSITIONED BACK TO VANCOMYCIN TO IMPROVE CHANCES OF DISCHARGE TO SNF. PT WAS TEARFUL ABOUT PAST MEMORIES AND WAS SEEN BY JAZLYN MATTA. MESSAGE LEFT FOR CARE MANAGEMENT REGARDING NEED FOR SOCIAL SERVICE ASSISTANCE. VSS. WILL MONITOR UNTIL REPORT TO ONCOMING RN.
[2020-04-04 05:51] LABS: BASOPHILS ABSOLUTE AUTO 0.06 K/mm3 (0.00-0.23); BASOPHILS PERCENT AUTO 1 % (0-2); EOSINOPHILS ABSOLUTE AUTO 0.28 K/mm3 (0.00-0.68); EOSINOPHILS PERCENT AUTO 3 % (0-6); Hemoglobin 8.6 g/dL (11.5-16.0); IMMATURE GRAN ABSOLUTE AUTO 0.19 K/mm3 (0.00-0.10); IMMATURE GRAN PERCENT AUTO 2 % (0-1); LYMPHOCYTES ABSOLUTE AUTO 2.59 K/mm3 (0.84-5.20); LYMPHOCYTES PERCENT AUTO 28 % (21-46); MONOCYTES ABSOLUTE AUTO 0.67 K/mm3 (0.16-1.47); MONOCYTES PERCENT AUTO 7 % (4-13); Mean Corpuscular HGB 28.6 pg (26.0-34.0); Mean Corpuscular HGB Conc 33.1 g/dL (31.5-36.5); Mean Corpuscular Volume 86 fL (80-100); NEUTROPHILS PERCENT AUTO 59 % (41-73); RDW Coefficient Variation 13.8 % (11.7-14.2); RDW Standard Deviation 43.2 fL (35.1-46.3); Red Blood Cell Count 3.01 M/mm3 (3.80-5.20); White Blood Cell Count 9.19 K/mm3 (4.00-11.30)
[2020-04-04 05:56] LABS: Mean Platelet Volume 10.3 fL (9.1-12.4)
[2020-04-04 05:59] LABS: Calcium, Blood 8.4 mg/dL (8.5-10.1); Creatinine, Blood 1.06 mg/dL (0.40-1.00); Potassium, Blood 3.8 mmol/L (3.5-5.5)
[2020-04-04 06:12] LABS: Platelet Count 377 K/mm3 (150-400)
--- NOTE | 2020-04-04 07:30 | NUR ---
removed tele pt stated they talked to her about going to [facility] today
--- NOTE | 2020-04-04 08:11 | NUR ---
SUMMARY PT WITH NO ACUTE CHANGES.MED PO FOR PAIN TONIGHT. CIRC CKS INTACT.
--- NOTE | 2020-04-04 09:50 | NUR ---
pt oob in recliner
[2020-04-04 10:36] LABS: Influenza A, PCR NEGATIVE (NEGATIVE); Influenza B, PCR NEGATIVE (NEGATIVE); Resp Syncytial Virus, PCR NEGATIVE (NEGATIVE); SARS-Cov-2 (COVID-19) PCR, MMC NEGATIVE (NEGATIVE)
--- NOTE | 2020-04-04 12:57 | NUR ---
report called to kelly
== END 2020-04-04 13:14 | DRG 853 ==
LOC: ER 14:35 → ERHOLD 23:43 → SURS 23:43
PROVIDERS: Family Medicine; Hospitalist; Nurse Practitioner Acute Care; Orthopaedic Surgery; Pharmacist; Physician Assistant; Student in an Organized Health Care Education/Training Program; ADMIT Internal Medicine
PROC: 0KBB0ZZ Excision of Left Lower Arm and Wrist Muscle, Open Approach (ICD-10-PCS; 2020-03-27)
PROC: 0R9M3ZZ Drainage of Left Elbow Joint, Percutaneous Approach (ICD-10-PCS; 2020-03-27)
PROC: 0M943ZZ Drainage of Left Elbow Bursa and Ligament, Percutaneous Approach (ICD-10-PCS; 2020-03-27)
PROC: 0LD60ZZ Extraction of Left Lower Arm and Wrist Tendon, Open Approach (ICD-10-PCS; principal; 2020-03-29 11:30)
PROC: 0RBM0ZZ Excision of Left Elbow Joint, Open Approach (ICD-10-PCS; 2020-03-31)
PROC: 0LD60ZZ Extraction of Left Lower Arm and Wrist Tendon, Open Approach (ICD-10-PCS; 2020-03-31)
PROC: 0RBM0ZZ Excision of Left Elbow Joint, Open Approach (ICD-10-PCS; 2020-04-02)
DX: A41.02 Sepsis due to Methicillin resistant Staphylococcus aureus (principal); J18.9 Pneumonia, unspecified organism; L03.114 Cellulitis of left upper limb; M60.022 Infective myositis, left upper arm; N17.9 Acute kidney failure, unspecified; N39.0 Urinary tract infection, site not specified; M00.9 Pyogenic arthritis, unspecified; Z20.822 Contact with and (suspected) exposure to COVID-19; E11.9 Type 2 diabetes mellitus without complications; Z79.4 Long term (current) use of insulin; I49.3 Ventricular premature depolarization; M60.9 Myositis, unspecified; M70.20 Olecranon bursitis, unspecified elbow
CPT/HCPCS: 0241U; 36415; 70450; 71045; 71260; 73080; 73110; 73220; 74176; 76882; 80048; 80053; 80202; 81001; 82550; 82947; 83605; 83690; 83880; 84145; 84484; 85025; 85379; 85651; 86140; 87040; 87070; 87075; 87077; 87086; 87147; 87186; 87205; 93005; 93010; 93306; 93971; 96365; 96366; 96367; 97110; 97112; 97116; 97162; 97166; 97530; 97535; 99285-25; A9270; A9579; C1751; J0878; J1100; J1650; J1885; J1956; J2250; J2405; J2704; J2765; J3010; J3370; J3480; J7030; J7040; J7050; J7120; Q9967

== ENCOUNTER 2020-06-26 11:02 | Inpatient (IN) | payer MEDICARE ==
[~2020-06-26] VITALS: Ht 157.5 cm; Wt 49.8 kg
[~2020-06-26 11:02] MED LIST changes: +HUMALOG100 UNIT/1 SC
[2020-06-26] MEDS ORDERED: Acetaminophen325 M1 PO (11:13)
[2020-06-26 11:24] LABS: BASOPHILS ABSOLUTE AUTO 0.03 K/mm3 (0.00-0.23); BASOPHILS PERCENT AUTO 1 % (0-2); EOSINOPHILS ABSOLUTE AUTO 0.17 K/mm3 (0.00-0.68); EOSINOPHILS PERCENT AUTO 3 % (0-6); Hematocrit 32.4 % (33.0-51.0); Hemoglobin 10.7 g/dL (11.5-16.0); IMMATURE GRAN ABSOLUTE AUTO 0.01 K/mm3 (0.00-0.10); IMMATURE GRAN PERCENT AUTO 0 % (0-1); LYMPHOCYTES ABSOLUTE AUTO 1.52 K/mm3 (0.84-5.20); LYMPHOCYTES PERCENT AUTO 27 % (21-46); MONOCYTES ABSOLUTE AUTO 0.41 K/mm3 (0.16-1.47); MONOCYTES PERCENT AUTO 7 % (4-13); Mean Corpuscular HGB 27.9 pg (26.0-34.0); Mean Corpuscular Volume 85 fL (80-100); Mean Platelet Volume 10.9 fL (9.1-12.4); NEUTROPHILS ABSOLUTE AUTO 3.55 K/mm3 (1.96-9.15); NEUTROPHILS PERCENT AUTO 62 % (41-73); Platelet Count 220 K/mm3 (150-400); RDW Coefficient Variation 12.9 % (11.7-14.2); RDW Standard Deviation 39.2 fL (35.1-46.3); Red Blood Cell Count 3.83 M/mm3 (3.80-5.20); White Blood Cell Count 5.69 K/mm3 (4.00-11.30)
[2020-06-26 11:41] LABS: Alanine Aminotransfer (ALT/SGP 12 U/L (12-78); Albumin, Blood 3.2 g/dL (3.4-5.0); Albumin/Globulin Ratio 0.8 (0.8-1.8); Alk Phos 94 U/L (50-136); Anion Gap 4 mmol/L (6-16); Aspartate Aminotrans (AST/SGOT 10 U/L (12-37); Bilirubin, Total 0.5 mg/dL (0.1-1.0); Blood Urea Nitrogen 11 mg/dL (8-24); CO2, Blood 29 mmol/L (21-32); Calcium, Blood 8.9 mg/dL (8.5-10.1); Chloride, Blood 104 mmol/L (98-108); Creatinine, Blood 0.85 mg/dL (0.40-1.00); Globulin, Blood 3.9 g/dL (2.2-4.0); Glomerular Filtration Rate >60 (60-); Glucose, Blood 386 mg/dL (70-99); Potassium, Blood 2.7 mmol/L (3.5-5.5); Sodium, Blood 137 mmol/L (136-145); Total Protein, Blood 7.1 g/dL (6.4-8.2)
[2020-06-26 12:37] LABS: Source, Urine Clean Catch
[2020-06-26 12:41] LABS: Bilirubin, Urine Neg (Neg); Blood, Urine 5+ (Neg); Glucose Qualitative, Urine 4+ (Neg); Ketones, Urine Neg (Neg); Leukocyte Esterase, Urine Neg (Neg); Nitrite, Urine Neg (Neg); Protein, Urine 2+ (Neg); Urobilinogen, Urine NORM (Normal)
[2020-06-26 13:17] LABS: Appearance, Urine Clear (Clear); Color, Urine Pale Yellow (P-Yellow)
[2020-06-26 13:20] LABS: Bacteria Rare /hpf; Mucus Light (0-Heavy); Red Blood Cells, Urine 25-50 /hpf (0-2); Renal Epithelial Few /hpf (0-Rare); Squamous Epithelial Cells Rare /hpf (Few); Transitional Epithelial Cells Rare /hpf (0-Rare); White Blood Cells, Urine 0-2 /hpf (0-5)
[2020-06-26 16:25] LABS: Troponin I 0.026 ng/mL (0.000-0.040)
[2020-06-26 16:27] LABS: Thyroid Stimulating Hormone 3.59 uIU/mL (0.360-4.800)
[2020-06-26 16:27] LABS: Base Excess Venous 2.5 mmol/L; Bicarbonate Venous 25.6 mmol/L (24.0-30.0); PCO2 Venous 51.3 mmHg (38-42); PO2 Venous 50.3 mmHg (38-42); pH Blood Venous 7.35 (7.34-7.37)
[2020-06-26 16:53] LABS: U Amphetamine Screen Not Detected; U Barbituate Screen Not Detected; U Benzodiazapine Screen Not Detected; U Buprenorphine Screen Not Detected; U Cannabinoids Screen Not Detected; U Cocaine Screen Not Detected; U Methadone Screen Not Detected; U Methamphetamine Screen Not Detected; U Opiates Screen Not Detected; U Oxycodone Screen Not Detected; U Phencyclidine Screen Not Detected; U Propoxyphene Screen Not Detected
--- NOTE | 2020-06-26 22:18 | NUR ---
ARRIVAL TO ICU 3 PT ARRIVED TO ICU 3 VIA ED BED AT 1845. PT ABLE TO STAND AND TRANSFER TO ICU BED. NICARDIPINE GTT STOPPED BEFORE ARRIVAL TO ICU AND THAN DC'D, PT STATUS CHANGED TO PCU STATUS. PT IS ALERT AND ORIENTED X4 BUT IS FORGETFUL REGARDING USE OF CALL LIGHT; BED ALARM IN PLACE FOR FALL PREVENTION; PT TENDS TO REPEAT STORIES AND IT CAN BE DIFFICULT FOLLOWING A CONVERSATION, UNSURE IF SOME TOPICS ARE RECENT OR IN THE PAST; PT FIXATED ON CALLING NOW, TWO PHONE NUMBERS FOUND CALLED AND THE VOICEMAIL BOX WAS NOT SET UP, PT CONT TO ANXIOUSLY WAIT FOR HIS CALL; PT IS AGREEABLE WITH CARE BUT STATES THAT SHE DOES NOT HAVE CHF AND THAT THE "DIABETES ISN'T HURTING ME, I FEEL FINE". SPO2 >95% ON 2L NC. AFEBRILE. HR 80-90'S. SBP 150-160. BT HYPOACTIVE; PT C/O DISCOMFORT IN ABD BUT "DOESN'T WANT ANYTHING TO HELP"; NO BM AT THIS TIME. PT ABLE TO USE BSC WITH ONE PERSON ASSIST. PT SALINE LOCKED. SEE ADMISSION ASSESSMENT FOR FULL ASSESSMENT.
[2020-06-27 02:14] LABS: BASOPHILS ABSOLUTE AUTO 0.03 K/mm3 (0.00-0.23); BASOPHILS PERCENT AUTO 0 % (0-2); EOSINOPHILS ABSOLUTE AUTO 0.18 K/mm3 (0.00-0.68); EOSINOPHILS PERCENT AUTO 2 % (0-6); Hematocrit 31.1 % (33.0-51.0); Hemoglobin 10.3 g/dL (11.5-16.0); IMMATURE GRAN ABSOLUTE AUTO 0.01 K/mm3 (0.00-0.10); IMMATURE GRAN PERCENT AUTO 0 % (0-1); LYMPHOCYTES ABSOLUTE AUTO 1.98 K/mm3 (0.84-5.20); LYMPHOCYTES PERCENT AUTO 25 % (21-46); MONOCYTES ABSOLUTE AUTO 0.56 K/mm3 (0.16-1.47); MONOCYTES PERCENT AUTO 7 % (4-13); Mean Corpuscular HGB 27.6 pg (26.0-34.0); Mean Corpuscular HGB Conc 33.1 g/dL (31.5-36.5); Mean Corpuscular Volume 83 fL (80-100); Mean Platelet Volume 10.6 fL (9.1-12.4); NEUTROPHILS ABSOLUTE AUTO 5.27 K/mm3 (1.96-9.15); NEUTROPHILS PERCENT AUTO 66 % (41-73); Platelet Count 238 K/mm3 (150-400); RDW Coefficient Variation 13.2 % (11.7-14.2); RDW Standard Deviation 39.8 fL (35.1-46.3); Red Blood Cell Count 3.73 M/mm3 (3.80-5.20); White Blood Cell Count 8.03 K/mm3 (4.00-11.30)
[2020-06-27 02:35] LABS: Anion Gap 4 mmol/L (6-16); Blood Urea Nitrogen 11 mg/dL (8-24); Bun/Creatinine Ratio 12.6 (12.0-20.0); CHOL/HDL RATIO 3.8; CO2, Blood 31 mmol/L (21-32); Calcium, Blood 8.3 mg/dL (8.5-10.1); Chloride, Blood 104 mmol/L (98-108); Cholesterol 198 mg/dL (50-200); Creatinine, Blood 0.87 mg/dL (0.40-1.00); Glomerular Filtration Rate >60 (60-); Glucose, Blood 237 mg/dL (70-99); HDL Cholesterol 52 mg/dL (>39); LDL/HDL RATIO 2.1; Low Density Lipoprotein Chol 111 mg/dL (0-110); Sodium, Blood 139 mmol/L (136-145); Triglycerides 176 mg/dL (30-160); Troponin I 0.024 ng/mL (0.000-0.040); Very Low Density Lipoprot Chol 35 mg/dL (6-32)
--- NOTE | 2020-06-27 05:23 | NUR ---
UPDATE CALLED HOSPITALIST REGARDING PT K+ OF 3.0 THIS AM. NEW ORDERS PROVIDED FOR KCL 40 MEQ PO NOW X1.
--- NOTE | 2020-06-27 06:06 | NUR ---
END OF SHIFT SUMMARY PT SLEPT ON AND OFF ALL NIGHT. PT IS ALERT AND ORIENTED X4 BUT IT IS CHALLENGING TO FOLLOW A CONVERSATION WITH HER; PT STILL FIXATED ON CALLING AND CHECKING WITH HER, RN CALLED TWO DIFFERENT PHONE NUMBER AND THEIR WAS NO ANSWER; PT DOES NOT USE CALL LIGHT APPROPRIATLY, BED ALARM ON; PT ALSO REPETATIVE. AFEBRILE. SPO2 >95% ON 2L NC. HR 70-80'S. SBP 140-160'S. PT HAS SOME ABD DISCOMFORT BUT STATES THAT IT IS MANAGABLE. PT USES BEDSIDE COMMODE WITH STANDBY ASSIST; 950ML URINE OUTPUT THIS SHIFT. PT IS SALINE LOCKED. PO KCL GIVEN. WILL REPORT TO AM RN WHEN AVAILABLE. WILL REPORT TO AM RN WHEN AVAILABLE.
--- NOTE | 2020-06-27 08:00 | NUR ---
PT A&OX4. COOPERATIVE WITH CARE. HOWEVER, FLIGHT OF IDEAS NOTED AND PT IS VERY POOR HISTORIAN. PT DENIES PAIN OR SOB. ASSISTED OOB TO BSC-PT INCONTINENT OF URINE. MARLEE CARE DONE AND NEW ADULT PULL UP PLACED. NO SOB NOTED WITH EXERTION. LUNGS DIMINISHED IN THE BASES, BUT SATS>90% ON 2 LITERS NASAL CANULA. SBP TRENDING 170'S-ZESTRIL (ROUTINE) GIVEN-SEE EMAR. ECG SHOWS SR WITH RATE 80'S. ECHO PLANNED FOR LATER THIS AM. ABLE TO SWALLOW MEDS WITHOUT DIFFICULTY. CBG 231-COVERED WITH 2 UNITS OF HUMALOG PER SLIDING SCALE-SEE EMAR. ANITICIPATE STATUS CHANGE LATER THIS AM.
--- NOTE | 2020-06-27 09:22 | NUR ---
Echocardiogram performed by Ronda Cornejo under my supervision.
--- NOTE | 2020-06-27 10:30 | NUR ---
PT UP TO BSC TO HAVE BM X 3. RN AT BEDSIDE FOR OVER AN HOUR. PT UP TO THE BSC, THEN BACK TO BED-THEN BACK UP TO BSC AND BACK TO BED. PT DID HAVE SMALL FORMED BM AND ONE TINY SMEAR OF LOOSE STOOL. PT REPORTS CRAMPING AND NAUSEA WITH THE CRAMPING. PT HAD SMALL EMESIS OF UNDIGESTED FOOD. MED WITH ZOFRAN 4 MG IVP X1 FOR NAUSEA WITH MINIMAL IMPROVEMENT OF SYMPTOMS. DR. LÓPEZ NOTIFIED AND ORDERS WRITTEN. WILL MAKE PT NPO UNTIL NAUSEA/VOMITING RESOLVES.
--- NOTE | 2020-06-27 12:30 | NUR ---
PT UTILIZED CALL SYSTEM TO REQUEST ASSISTANCE OOB TO BSC. SHE REQUESTED TO "SIT HER A WHILE." REQUEST GRANTED. AFTER APROXIMATELY 15 MINUTES, RN ENTERED ROOM FOR VS, ASSESSMENT, AND TO ASSIST PT BACK TO BED. PT FOUND WITH STOOL COVERING BOTH HANDS. PT STATED " I HAD TO GET IT OUT!" PT HAD EXTRA LARGE BROWN, FORMED STOOL MIXED WITH EXTRA LARGE AMOUNT OF BROWN, LIQUID STOOL. PT HANDS SOAKED IN SHAMPOO CAPS X 10 MINUTES AND STOOL REMOVED. PT GIVEN PARTIAL BATH, GOWN CHANGED AND ASSISTED BACK TO BED. ONCE IN BED, VS AND ABG CHECKED. CBG 325-PT GIVEN 4 UNITS HUMALOG PER SLIDING SCALE. SBP TRENDING OVER 180'S-MED WITH LABETOLOL 10 MG IVP X 1-SEE EMAR.
--- NOTE | 2020-06-27 12:51 | NUR ---
BP 129/63 AFTER MED WITH LABETOLOL.
--- NOTE | 2020-06-27 15:42 | NUR ---
NO ACUTE CHANGES. PT HAS BEEN SLEEPING SINCE ASSISTED BACK TO BED AROUND 1300. REPORT PHONED TO YAMILE MCALLISTER IN PREP TO TRANSFER PT TO ROOM 335.
--- NOTE | 2020-06-27 16:11 | NUR ---
PT ARRIVED TO UNIT FROM ICU @ APPROX 1600. PT IS REPORTING NO DISTRESS BESIDES FEELING NAUSEOUS AND COLD. PT PROVIDED WITH A WARM BLANKET. CURRENTLY NPO, AWAITING SPEECH EVAL. PT IS SATING GREATER THAN 92% ON RA, LUNG SOUNDS DIMINISHED IN THE BASES. A&O. SKIN APPEARS TO BE C/D/I. PT IS ORIENTED TO CALL SYSTEM, BED ALARM ON. ATTENDS CLEAN AND DRY.
--- NOTE | 2020-06-27 17:43 | NUR ---
CBG [address] ALLISON WHO IS COVERING FOR DR LÓPEZ. WILL GIVE 5 UNITS PER LOW SLIDING SCALE. NO FURTHER ORDERS AT THIS TIME.
--- NOTE | 2020-06-27 18:34 | NUR ---
NO ACUTE CHANGES SINCE ARRIVAL TO UNIT THIS AFTERNOON. CBG 402 THIS AFTERNOON, PROVIDER NOTIFIED. 10 UNITS OF HUMALOG GIVEN PER ORDERS. PT WAS ASYMPTOMATIC. RESTING QUIETLY IN BED, APPEARS TO BE IN NO DISTRESS. CALL LIGHT WITHIN REACH, BED ALARM ON.
--- NOTE | 2020-06-28 04:55 | NUR ---
SHIFT SUMMARY PT DECONDITIONED. FATIGUED AND WITH INTERMITTENT CONFUSION AND FLIGHT OF IDEAS. SLEPT THE ENTIRE NIGHT EXCEPT WHEN BEING WOKEN BY STAFF OR GETTING UP TO VOID. REPORTED NAUSEA WHEN AWAKE. MEDICATED WITH SCHEDULED REGLAN AT BEDTIME. CBG 251 W/ MIDNIGHT CHECK. COVERED PER ORDERED SCALE. PT NPO. TELEMETRY READING SR IN THE 90'S. VITAL SIGNS STABLE. PT CONTINUES TO SLEEP AT THIS TIME. WILL CONTINUE TO MONITOR.
[2020-06-28 05:54] LABS: Calcium, Blood 8.7 mg/dL (8.5-10.1); Creatinine, Blood 1.05 mg/dL (0.40-1.00); Potassium, Blood 3.2 mmol/L (3.5-5.5)
--- NOTE | 2020-06-28 16:45 | NUR ---
SHIFT SUMMARY PT A&Ox3-4 WITH INTERMITTENT CONFUSION. PT REPORTS MISSING HER OFTEN T/O THE DAY. PT HAD SPEECH EVAL TODAY, STILL NPO, INCLUDING MEDICATIONS. PT GETTING Q6 BG CHECKS WITH INSULIN COVERAGE PRN. PT DENIES ANY PAIN. FLUIDS ORDERED AT LR 100/HR. ORAL CARE Q4 HOURS. PT WORKED WITH PATIENT TODAY, AND REPORTS CONCERNS THAT PATIENT IS UNSAFE TO DC BACK HOME. BARIUM SWALLOW SCHEDULED FOR 06/30/20. PER CATTLE BRANDER, TELE RUNNING SR 84. PT GETTING UP TO USE BSC WITH SBA AND FWW/GB. VITALS REVIEWED. PT DENIES ANY NEEDS AT THIS TIME. CALL LIGHT IN REACH.
--- NOTE | 2020-06-29 05:05 | NUR ---
SHIFT SUMMARY PT HAS APPEARED MORE AWAKE THIS SHIFT. CONTINUES TO HAVE SOME CONFUSION AND FLIGHT OF IDEAS. SLEPT WELL A GOOD PORTION OF THE NIGHT. PT HAS REMAINED NPO. DENIED ANY NAUSEA OR ABD PAIN THIS EVENING. CLINIMIX INFUSING. PT IS DECONDITIONED. ON RA. DENIES SOB. VITAL SIGNS STABLE. WILL CONTINUE TO MONITOR.
[2020-06-29 06:00] LABS: Anion Gap 4 mmol/L (6-16); Blood Urea Nitrogen 28 mg/dL (8-24); Bun/Creatinine Ratio 34.1 (12.0-20.0); CO2, Blood 29 mmol/L (21-32); Calcium, Blood 8.5 mg/dL (8.5-10.1); Chloride, Blood 108 mmol/L (98-108); Creatinine, Blood 0.82 mg/dL (0.40-1.00); Glomerular Filtration Rate >60 (60-); Glucose, Blood 222 mg/dL (70-99); Potassium, Blood 3.7 mmol/L (3.5-5.5); Sodium, Blood 141 mmol/L (136-145)
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
--- NOTE | 2020-06-29 17:40 | NUR ---
PT IS A/O X3 MOST OF THE TIME, HAS FLIGHT OF IDEAS, AND GAPS IN HER STORYLINE. SHE HAS BEEN RESTING MOST OF THE DAY, AND CALLS APPROPRIATELY TO USE THE BEDSIDE COMMODE. SHE IS A STANDBY ASSIST. PT IS GETTING PPN AND CLINIMEX. SHE WILL GET HER BARIUM SWALLOW STUDY DONE IN THE AM. PT IS ON RA, VSS.
--- NOTE | 2020-06-30 04:44 | NUR ---
SHIFT SUMMARY PT HAS BEEN MORE ALERT THIS EVENING. ANSWERS QUESTIONS APPROPRIATELY MOST OF THE TIME. PT HAS SOME FLIGHT OF IDEAS. SIMPLE ANSWERS. PT TALKS ABOUT A LOT. PT REMAINS NPO. PLAN FOR BARIUM SWALLOW EVAL TODAY. TPN RUNNING CONTINUOUSLY. PT HAS DENIED ANY NAUSEA OR PAIN. VITAL SIGNS HAVE BEEN STABLE. PT SLEPT OFF AND ON THROUGHOUT THE NIGHT. WILL CONTINUE TO MONITOR AND REPORT TO DAY RN.
[2020-06-30 05:34] LABS: Magnesium, Blood 2.4 mg/dL (1.6-2.4); Phosphorus, Blood 4.4 mg/dL (2.5-4.9); Triglycerides 266 mg/dL (30-160)
[2020-06-30 08:46] LABS: Anion Gap 10 mmol/L (6-16); Blood Urea Nitrogen 28 mg/dL (8-24); Bun/Creatinine Ratio 40.1 (12.0-20.0); CO2, Blood 23 mmol/L (21-32); Calcium, Blood 8.7 mg/dL (8.5-10.1); Chloride, Blood 103 mmol/L (98-108); Glomerular Filtration Rate >60 (60-); Glucose, Blood 272 mg/dL (70-99); Potassium, Blood 3.8 mmol/L (3.5-5.5); Sodium, Blood 136 mmol/L (136-145)
--- NOTE | 2020-06-30 15:17 | NUR ---
Pt lying in bed, tab alarm in place. Per the nurse, pt's S/O has been by to see the pt, and the nurse requested their phone number for contact. However, the s/o states he doesn't know his cell phone number, that he doesn't call himself. Pt doesn't know the number either. Pt appears to be struggling with possible dementia or other mental delay. Plan to continue to see pt, will follow up as needed. Pt is NPO at this time, pending barium swallow study.
--- NOTE | 2020-06-30 17:26 | NUR ---
PATIENT IS ALERT. SHE IS ORIENTED TO SELF, FOLLOWING DIRECTIONS AND HER FAMILY. SHE IS FORGETFUL AND CONFUSED AT TIMES. BED ALARM IS ON. PATIENT WILL CALL TO GO TO THE BATHROOM. SHE IS STRICT NPO. THE PATIENT HAS CALLED MULTIPLE TIMES THIS SHIFT. WILL CONTINUE TO MONITOR
--- NOTE | 2020-07-01 04:50 | NUR ---
SHIFT SUMMARY AOX3. FORGETFUL. FLIGHT OF IDEAS, OFF TOPIC FREQUENTLY. VSS. TELE NSR @92. DENIES PAIN, N/V, DYSPNEA. FAILED BARIUM SWALLOW EVAL YESTERDAY, STRICT NPO. RECIEVING PPN. Q6 CBG CHECKS. DR DESAI CONSULTED. BED ALARM & CALL LIGHT IN PLACE FOR SAFETY, WILL MONITOR.
[2020-07-01 05:58] LABS: Magnesium, Blood 2.5 mg/dL (1.6-2.4); Phosphorus, Blood 4.6 mg/dL (2.5-4.9)
--- NOTE | 2020-07-01 13:37 | NUR ---
PPN STOPPED PT ATE 100% OF HER PUREE LUNCH AND TOLERATED IT WELL. AIDE REPORTED THAT PT DID NOT COUGH WHILE EATING. PT STATES SHE WAS "STARVING" PRIOR TO EATING LUNCH AND NOW FEELS FULL. DR. LÓPEZ AWARE OF THIS PROGRESS AND ORDERED TO STOP PPN FOR NOW.
--- NOTE | 2020-07-01 15:38 | NUR ---
BLOOD GLUCOSE CHECKS CHANGED TO ACHS NOW THAT PT IS TOLERATING PO INTAKE. INSULIN ORDER CHANGED TO LOW SLIDING SCALE, ACHS ALSO PER DR. LÓPEZ.
--- NOTE | 2020-07-01 17:33 | NUR ---
SHIFT SUMMARY AOX 2-3. SUPPOSITORY GIVEN FOR CONSTIPATION. PATIENT PROGRESSED TO HAVE 2 SMALL BOWEL MOVEMENTS. PT/OT CONSULTATED FOR SWALLOW EVALUATION. PATIENT IS TAKEN OFF NPO STATUS AND MOVED TO PUREE AND THIN LIQUIDS WITH NO STRAW. TPN HAS BEEN DISCONTINUED. PATIENT HAS TOLERATED PUREE DIET WELL SO FAR. PATIENT HAS DENIED PAIN, N/V AND DYSPNEA AT THIS TIME. PATIENT IS A SINGLE PERSON ASSIST. TELE NSR IN THE 80S. VITAL SIGNS REVIEWED. BLOOD SUGARS CHECK BEFORE EVERY MEAL AND AT BEDTIME INSTEAD OF Q6.
--- NOTE | 2020-07-01 17:43 | NUR ---
SCIENTIST IMMUNOLOGY DOC REVIEW THIS RN ASSESSED THE PT. REVIEWED & AGREES WITH STUDENT NURSE'S DOCUMENTATION FOR THIS SHIFT.
--- NOTE | 2020-07-02 06:44 | NUR ---
SHIFT SUMMARY NO ACUTE CHANGES THIS SHIFT. AOX3-FORGETFUL @TIMES. FLIGHT OF IDEAS. VSS. TELE NSR @97. DENIES PAIN, N/V, OR DYSPNEA. AWAITING SAFE DC PLAN. CALL LIGHT & BED ALARM IN PLACE FOR SAFETY.
[2020-07-02 07:31] LABS: Anion Gap 6 mmol/L (6-16); Blood Urea Nitrogen 22 mg/dL (8-24); Bun/Creatinine Ratio 26.6 (12.0-20.0); CO2, Blood 28 mmol/L (21-32); Chloride, Blood 103 mmol/L (98-108); Creatinine, Blood 0.83 mg/dL (0.40-1.00); Glomerular Filtration Rate >60 (60-); Glucose, Blood 126 mg/dL (70-99); Magnesium, Blood 2.3 mg/dL (1.6-2.4); Phosphorus, Blood 4.7 mg/dL (2.5-4.9); Potassium, Blood 3.5 mmol/L (3.5-5.5); Sodium, Blood 137 mmol/L (136-145)
--- NOTE | 2020-07-02 14:06 | NUR ---
SPOKE TO P/THERAPY. MORRIS STATES PT SAFE TO GO HOME, ABLE TO WALK. 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 HAS HARD TIME WITH PROCEEDURE COGNITION TYPE THINGS. DISCUSSED WITH DR LÓPEZ. SHE TO SEE PT. WILL ADVISE LATER ON D/CHG,
--- NOTE | 2020-07-02 18:07 | NUR ---
Spiritual care note: Mrs. Valencia was tearful and told me she was fearful. Shortly after I sat down, her spouse, Uche, called. Chey became more tearful while trying to assure Uche that she would be home today and that he wasn't "an ugly man." This conversation went round and round several times. Chey wants to go home to be with Uche. "He's the love of my life and we have to be together." Throughout our conversation, she had trouble staying on topic and would often drift into tangents. She states that she doesn't like to be alone and asked me to stay awhile and watch TV with her. It is important for medical team to know that neither pt or spouse are literate. Therefore written discharge instructions and directions on medicine bottles are useless. Chey practices a hybrid spirituality of /Wicaan beleifs with some Roman Catholic mixed in. Prayer to "the Creator" is something she responds well to. She hopes to be returning home by tomorrow. [employer] services will remain avaialble.
--- NOTE | 2020-07-02 18:31 | NUR ---
PT WAS TO BE DISCHARGED TODAY. SPEACH THERAPY DISCUSSED PT COGNITIVE FUNCTIONAL SITUATION. REFERRED TO DR LÓPEZ. DR CHAVEZ TO SEE PT. DID HOLD D/C AND IS DISCUSSING WITH DISCHARGE PLANNING. SEE PRIOR NOTE. PT REMAINS QUITE PLEASANT WITH ME. NO NEW CONCERNS NOTED. BED IN LOW POSITION,C ALL LITEIN REACH, BED ALARM ON FOR SAFETY
--- NOTE | 2020-07-03 06:32 | NUR ---
SHIFT SUMMARY- PT. A&OX3 WITH COMMUNICATION DEFICITS NOTED. PT. SBA W/WALKER, IMPULSIVE AT TIMES. HAD NO COMPLAINTS OF PAIN OR DISCOMFORT DURING THE NIGHT. SLEPT T/O THE NIGHT, NO APPARENT DISTRESS NOTED. ON RA, SR ON TELE, AND VSS. PT. ADVANCED TO ADA DIET LAST NIGHT BY DR. DESAI. CALL LIGHT WITHIN REACH, SIDE RAILS UPX2, AND BED ALARM ON FOR SAFETY. WILL CONT TO MONITOR.
--- NOTE | 2020-07-03 18:14 | NUR ---
PT PLEASANT TODAY. AMBULATING TO BATHROOM NEEDED. SBA. DR LÓPEZ CONCERNS FOR HOME SAFETY AND PLAN FOR D/C SOON. NO NEW CONCERNS NOTED TODAY. PT MEMORY IS SIMPLE AND SHORT TERM DETAILS ARE SKETCHY. BEDIN LOW POSITION, CALL LITE IN REACH, BED ALARM ON FOR SAFETY, IS IMPULSIVE
--- NOTE | 2020-07-04 06:08 | NUR ---
SHIFT SUMMARY- NO ACUTE EVENTS OVERNIGHT. PT. RESTED QUIETLY IN BED DURING THE NIGHT, NO APPARENT DISTRESS NOTED. DENIED PAIN OR DISCOMFORT LAST NIGHT, VSS. CALL LIGHT WITHIN REACH. WILL CONT TO MONITOR.
[2020-07-04] MEDS ORDERED: Aspir 8181 MG PO (09:27)
[2020-07-04] MEDS ORDERED: FURO40 PO (09:28)
[2020-07-04] MEDS ORDERED: ATOR40TA PO (09:28)
[2020-07-04] MEDS ORDERED: INSULANPEN SC (09:29)
[2020-07-04] MEDS ORDERED: HUMALOG KW100 UNIT/1 SC (09:31)
[2020-07-04] MEDS ORDERED: NIFE60ER PO (09:32)
--- NOTE | 2020-07-04 14:17 | NUR ---
IV PULLED INTACT TELE REMOVED. PEND D/C PAPERS
--- NOTE | 2020-07-04 15:07 | NUR ---
DISCHARGED REVIEWED WITH PT . SHE STATES UNDERSTANDING, DISCUSSED NEW MEDS. AND DR SCHULTZ, VERBALIZED UNDERSTANDING. GAVE PACKET OF INFO WITH COMMUNITY SERVICES AND HELP. LOW S/S INSULIN SHEET, INSTRUCTS FOR HUSB TO CALL IF QUESTIONS. TELE REMOVED , IV REMOVED INTACT. PEND RIDE FROM [facility].
--- NOTE | 2020-07-04 15:36 | NUR ---
[facility] ARRIVED, WHEELED PT OUT DOOR AT [id number]
== END 2020-07-04 15:46 | disposition home health service (06) | DRG 304 ==
LOC: ER 11:02 → PCU 17:38 → ICUE 17:38 → MEDS 17:38 → ICUE 18:49 → MEDS 06-27 15:53 → ENPENDDIS 07-04 11:19 → MEDS 07-04 15:46
PROVIDERS: Emergency Medicine; Family Medicine; Nurse Practitioner Acute Care; ADMIT Internal Medicine
DX: I16.1 Hypertensive emergency (principal); I50.31 Acute diastolic (congestive) heart failure; E87.6 Hypokalemia; R13.10 Dysphagia, unspecified; G31.84 Mild cognitive impairment of uncertain or unknown etiology; K64.9 Unspecified hemorrhoids; E11.65 Type 2 diabetes mellitus with hyperglycemia; Z86.14 Personal history of Methicillin resistant Staphylococcus aureus infection; Z88.0 Allergy status to penicillin; Z90.49 Acquired absence of other specified parts of digestive tract; Z79.4 Long term (current) use of insulin; Z91.14 Patient's other noncompliance with medication regimen; Z87.442 Personal history of urinary calculi
CPT/HCPCS: 36415; 71260; 74177; 74220; 80048; 80053; 80061; 81001; 82272; 82803; 82947; 83735; 83880; 84100; 84443; 84478; 84484; 85025; 86850; 86900; 86901; 92507; 92523; 92526; 92610; 93005; 93010; 93308; 93321; 96365-59; 96375-59; 97110; 97116; 97129; 97162; 97165; 97530; 97535; 99285-25; A9270; J1940; J2405; J2765; J7030; J7050; J7120; Q9967

== ENCOUNTER → 2020-11-10 | Outpatient (CLI) | payer MEDICARE ==
[~2020-11-10] MED LIST changes: +ATOR40TA PO; +Acetaminophen325 M1 PO; +Aspir 8181 MG PO; +FURO40 PO; +INSULANPEN SC; +NIFE60ER PO
[2020-11-10 15:49] LABS: BASOPHILS ABSOLUTE AUTO 0.04 K/mm3 (0.00-0.23); BASOPHILS PERCENT AUTO 1 % (0-2); EOSINOPHILS ABSOLUTE AUTO 0.09 K/mm3 (0.00-0.68); EOSINOPHILS PERCENT AUTO 1 % (0-6); Hematocrit 38.8 % (33.0-51.0); Hemoglobin 12.8 g/dL (11.5-16.0); IMMATURE GRAN ABSOLUTE AUTO 0.06 K/mm3 (0.00-0.10); IMMATURE GRAN PERCENT AUTO 1 % (0-1); LYMPHOCYTES ABSOLUTE AUTO 1.57 K/mm3 (0.84-5.20); LYMPHOCYTES PERCENT AUTO 24 % (21-46); MONOCYTES ABSOLUTE AUTO 0.45 K/mm3 (0.16-1.47); MONOCYTES PERCENT AUTO 7 % (4-13); Mean Corpuscular HGB 27.1 pg (26.0-34.0); Mean Corpuscular Volume 82 fL (80-100); Mean Platelet Volume 10.3 fL (9.1-12.4); NEUTROPHILS ABSOLUTE AUTO 4.27 K/mm3 (1.96-9.15); NEUTROPHILS PERCENT AUTO 66 % (41-73); Platelet Count 276 K/mm3 (150-400); RDW Coefficient Variation 13.2 % (11.7-14.2); Red Blood Cell Count 4.73 M/mm3 (3.80-5.20); White Blood Cell Count 6.48 K/mm3 (4.00-11.30)
[2020-11-10 16:09] LABS: Albumin, Blood 3.5 g/dL (3.4-5.0); Albumin/Globulin Ratio 0.8 (0.8-1.8); Bilirubin, Total 0.4 mg/dL (0.1-1.0); Bun/Creatinine Ratio 12.9 (12.0-20.0); Calcium, Blood 9.3 mg/dL (8.5-10.1); Creatinine, Blood 1.4 mg/dL (0.40-1.00); Globulin, Blood 4.3 g/dL (2.2-4.0); Potassium, Blood 4.4 mmol/L (3.5-5.5); Total Protein, Blood 7.8 g/dL (6.4-8.2)
== END | disposition home or self-care (01) ==
LOC: LAB SHORT 15:41 → LAB 15:41
PROVIDERS: Physician Assistant Medical
DX: E11.9 Type 2 diabetes mellitus without complications (principal); R53.83 Other fatigue
CPT/HCPCS: 80053; 83036; 85025

== ENCOUNTER 2020-12-23 17:02 | Emergency (ER) | payer MEDICARE ==
[~2020-12-23] VITALS: Ht 170.2 cm; Wt 51.2 kg
[2020-12-23 18:14] LABS: BASOPHILS ABSOLUTE AUTO 0.03 K/mm3 (0.00-0.23); BASOPHILS PERCENT AUTO 0 % (0-2); EOSINOPHILS ABSOLUTE AUTO 0.09 K/mm3 (0.00-0.68); EOSINOPHILS PERCENT AUTO 1 % (0-6); Hematocrit 36.3 % (33.0-51.0); Hemoglobin 12.3 g/dL (11.5-16.0); IMMATURE GRAN ABSOLUTE AUTO 0.04 K/mm3 (0.00-0.10); IMMATURE GRAN PERCENT AUTO 0 % (0-1); LYMPHOCYTES ABSOLUTE AUTO 2.18 K/mm3 (0.84-5.20); LYMPHOCYTES PERCENT AUTO 22 % (21-46); MONOCYTES ABSOLUTE AUTO 0.75 K/mm3 (0.16-1.47); MONOCYTES PERCENT AUTO 7 % (4-13); Mean Corpuscular HGB 27.6 pg (26.0-34.0); Mean Corpuscular HGB Conc 33.9 g/dL (31.5-36.5); Mean Corpuscular Volume 81 fL (80-100); NEUTROPHILS ABSOLUTE AUTO 7.01 K/mm3 (1.96-9.15); NEUTROPHILS PERCENT AUTO 69 % (41-73); Platelet Count 312 K/mm3 (150-400); RDW Coefficient Variation 13.5 % (11.7-14.2); RDW Standard Deviation 40.2 fL (35.1-46.3); Red Blood Cell Count 4.46 M/mm3 (3.80-5.20)
[2020-12-23] MEDS ORDERED: METFORMIN HCL500 M2 PO (18:17)
[2020-12-23 18:37] LABS: Anion Gap 9 mmol/L (6-16); Blood Urea Nitrogen 17 mg/dL (8-24); Bun/Creatinine Ratio 19.2 (12.0-20.0); CO2, Blood 26 mmol/L (21-32); Calcium, Blood 9.6 mg/dL (8.5-10.1); Chloride, Blood 97 mmol/L (98-108); Creatinine, Blood 0.88 mg/dL (0.40-1.00); Glomerular Filtration Rate >60 (60-); Glucose, Blood 457 mg/dL (70-99); Potassium, Blood 3.4 mmol/L (3.5-5.5); Sodium, Blood 132 mmol/L (136-145)
[2020-12-23] MEDS ORDERED: CIPR500 PO (21:09)
[2020-12-23] MEDS ORDERED: SULTRIDS PO (21:09)
== END 2020-12-23 21:16 | disposition home or self-care (01) ==
LOC: ER 17:02
PROVIDERS: Student in an Organized Health Care Education/Training Program
DX: L03.211 Cellulitis of face (principal); E11.65 Type 2 diabetes mellitus with hyperglycemia; R00.1 Bradycardia, unspecified; H53.8 Other visual disturbances; Z88.0 Allergy status to penicillin; Z79.4 Long term (current) use of insulin; Z79.82 Long term (current) use of aspirin; Z79.899 Other long term (current) drug therapy
CPT/HCPCS: 36415; 70450; 70487; 80048; 82947; 83605; 85025; 86141; 96365; 96367; 99284-25; A9270; J2185; J3370; J7030; Q9967

== ENCOUNTER → 2021-01-28 | Outpatient (CLI) | payer MEDICARE, OTHER ==
[~2021-01-28] MED LIST changes: +CIPR500 PO; +METFORMIN HCL500 M2 PO; +SULTRIDS PO
[2021-01-28 15:35] LABS: Anion Gap 8 mmol/L (6-16); Blood Urea Nitrogen 10 mg/dL (8-24); Bun/Creatinine Ratio 12.4 (12.0-20.0); CO2, Blood 22 mmol/L (21-32); Calcium, Blood 7.8 mg/dL (8.5-10.1); Chloride, Blood 96 mmol/L (98-108); Creatinine, Blood 0.81 mg/dL (0.40-1.00); Glomerular Filtration Rate >60 (60-); Glucose, Blood 135 mg/dL (70-99); Potassium, Blood 4.6 mmol/L (3.5-5.5); Sodium, Blood 126 mmol/L (136-145)
[2021-01-28 16:07] LABS: Hematocrit 34.4 % (33.0-51.0); Hemoglobin 12.5 g/dL (11.5-16.0); Mean Corpuscular HGB 33.3 pg (26.0-34.0); Mean Corpuscular HGB Conc 36.3 g/dL (31.5-36.5); Mean Corpuscular Volume 92 fL (80-100); Mean Platelet Volume 12.9 fL (9.1-12.4); RDW Coefficient Variation 13.9 % (11.7-14.2); RDW Standard Deviation 46.5 fL (35.1-46.3); Red Blood Cell Count 3.75 M/mm3 (3.80-5.20); White Blood Cell Count 7.47 K/mm3 (4.00-11.30)
== END | disposition home or self-care (01) ==
LOC: EDSTATUS 13:43 → LAB RH 13:58
PROVIDERS: Internal Medicine
DX: F03.90 Unspecified dementia, unspecified severity, without behavioral disturbance, psychotic disturbance, mood disturbance, and anxiety (principal); E11.9 Type 2 diabetes mellitus without complications; E43 Unspecified severe protein-calorie malnutrition
CPT/HCPCS: 80048; 83036; 85027

== ENCOUNTER → 2021-01-30 | Outpatient (CLI) | payer MEDICARE, OTHER ==
[2021-01-30 13:48] LABS: Bun/Creatinine Ratio 30.3 (12.0-20.0); Calcium, Blood 8.9 mg/dL (8.5-10.1); Creatinine, Blood 0.92 mg/dL (0.40-1.00); Potassium, Blood 3.3 mmol/L (3.5-5.5)
== END | disposition home or self-care (01) ==
LOC: LAB RH 11:15 → EDSTATUS 13:44
PROVIDERS: Internal Medicine
DX: E87.1 Hypo-osmolality and hyponatremia (principal)
CPT/HCPCS: 80048

== ENCOUNTER → 2021-02-11 | Outpatient (CLI) | payer MEDICARE, OTHER ==
[2021-02-11 20:31] LABS: Anion Gap 9 mmol/L (6-16); Blood Urea Nitrogen 27 mg/dL (8-24); Bun/Creatinine Ratio 31.3 (12.0-20.0); CO2, Blood 31 mmol/L (21-32); Chloride, Blood 99 mmol/L (98-108); Creatinine, Blood 0.86 mg/dL (0.40-1.00); Glomerular Filtration Rate >60 (60-); Glucose, Blood 143 mg/dL (70-99); Potassium, Blood 3.5 mmol/L (3.5-5.5); Sodium, Blood 139 mmol/L (136-145)
== END | disposition home or self-care (01) ==
LOC: EDSTATUS 13:51 → LAB RH 17:30
PROVIDERS: Internal Medicine
DX: E11.9 Type 2 diabetes mellitus without complications (principal)
CPT/HCPCS: 80048

== ENCOUNTER → 2021-05-18 | Outpatient (CLI) | payer MEDICARE, OTHER ==
[2021-05-18 11:32] LABS: Anion Gap 8 mmol/L (6-16); Blood Urea Nitrogen 20 mg/dL (8-24); Bun/Creatinine Ratio 27.9 (12.0-20.0); CO2, Blood 30 mmol/L (21-32); Calcium, Blood 10.2 mg/dL (8.5-10.1); Chloride, Blood 99 mmol/L (98-108); Creatinine, Blood 0.72 mg/dL (0.40-1.00); Glomerular Filtration Rate >60 (60-); Glucose, Blood 236 mg/dL (70-99); Potassium, Blood 3.6 mmol/L (3.5-5.5); Sodium, Blood 137 mmol/L (136-145)
== END | disposition home or self-care (01) ==
LOC: LAB RH 10:27 → EDSTATUS 13:46
PROVIDERS: Internal Medicine
DX: I50.42 Chronic combined systolic (congestive) and diastolic (congestive) heart failure (principal); E78.5 Hyperlipidemia, unspecified
CPT/HCPCS: 80048